=== PATIENT | male | born 1965 | race Caucasian/White ===

== ENCOUNTER 2018-04-02 11:50 | Outpatient (CLI) | payer OTHER ==
--- NOTE | 2018-04-02 14:33 | RAD ---
PA AND LATERAL CHEST XRAY: DATE: 04/02/2018. HISTORY: Hypertension, dyspnea, fatigue. Symptoms have been present for 3-4 months. COMPARISON: 12/12/2003. FINDINGS: Cardiac silhouette and pulmonary vasculature are within normal limits. Interstitial markings are mil dly prominent, but probably within normal limits for the patient. No consolidation or pleural effusi on and the lungs are otherwise clear. A stable small hiatal hernia is again present. No other inter talon change. IMPRESSION: 1. No acute cardiopulmonary process. 2. Stable hiatal hernia. POS: [facility]
== END 2018-04-02 11:51 | disposition home or self-care (01) ==
LOC: BICRAD 11:50
PROVIDERS: ATTEND Internal Medicine Cardiovascular Disease
DX: I10 Essential (primary) hypertension (principal); R06.02 Shortness of breath; R53.83 Other fatigue; K44.9 Diaphragmatic hernia without obstruction or gangrene
CPT/HCPCS: 71046